=== PATIENT | female | born 1940 | race African-American/Black ===

== ENCOUNTER 2017-01-04 11:09 | Emergency (ER) | payer OTHER ==
[~2017-01-04 11:09] MED LIST: ALBU8I INH; CALC0.5C6 PO; CEPH-460 PO; FLUT5SPR INH; FOSA70TA PO; GABA300C5 PO; METO25TA3 PO; ZANA4CAP PO
[2017-01-04 11:11] VITALS: BP 128/72; PULSE 100; RESP 24; TEMP 99.2; O2SAT 98
[2017-01-04 11:44] VITALS: BP 111/60; PULSE 89; RESP 24; TEMP 99.6; O2SAT 98
[2017-01-04] MEDS ORDERED: ACETAMINOPHEN 325 MG TAB PO ONE (11:45)
--- NOTE | 2017-01-04 11:51 | PD ---
HPI Chief Complaint: Abnormal Results Time Seen by Provider: 11:31 Travel History International Travel<30 days: No Contact w/Intl Traveler<30days: No Traveled to known affect area: No History of Present Illness HPI 76 female with ESRD on HD (MWF), sent in by her primary care physician for evaluation of low blood pressure. Patient made an appointment with him today because she has been having headaches at night and night sweats for the past couple nights. She states that when she was in his office this morning her blood pressure was 70 systolic. In triage she is normotensive. She currently states that she feels well and is denying any physical complaints. No headache or neck stiffness. No chest pain or dyspnea. No abdominal pain, nausea, or vomiting. PFSH Past Medical History Arthritis: Yes Asthma: No Blood Disorders: No Anxiety: No Depression: No Heart Rhythm Problems: No Cancer: No Cardiovascular Problems: Yes High Cholesterol: No Chest Pain: No Congestive Heart Failure: Yes COPD: No Cerebrovascular Accident: No Diabetes: No Endocrine: No GERD: Yes Genitourinary: Yes (self straight cath, dialysis) Hepatitis: Yes (C) Hiatal Hernia: No Hypertension: Yes Immune Disorder: No Implanted Vascular Access Dvce: Yes Kidney Stones: Yes Musculoskeletal: Yes (ARTHRITIS) Neurologic: No Psychiatric: No Reproductive: No Respiratory: Yes Migraines: No Renal Failure: No Seizures: No Sleep Apnea: No Thyroid Disease: No Ulcer: No Tetanus Vaccination: > 5 Years Influenza Vaccination: Yes Menopausal: Yes : 6 Para: 6 Tubal Ligation: Yes Past Surgical History Abdominal Surgery: No AICD: No Body Medical Devices: RODS IN BACK, vascath right chest wall, fistula right arm Cardiac Surgery: No Ear Surgery: No Endocrine Surgery: No Eye Surgery: Yes (CATARACT REMOVE 2010) Genitourinary Surgery: Yes (KIDNEY STONE MORE THEN 20 YEARS) Gynecologic Surgery: Yes (HYSTERECTOMY) Hysterectomy: Yes (FULL) Joint Replacement: Yes (BOTH KNEES REPLACED) Neurologic Surgery: Yes (LAMI) Oral Surgery: Yes (REMOVE TEETH) Pacemaker: No Thoracic Surgery: Yes (LAMI LOWER [id number], 2013 X2) Other Surgery: Yes Social History Alcohol Use: No Tobacco Use: No Substance Use: No Allergies-Medications (Allergen,Severity, Reaction): Coded Allergies: Hydralazine (Verified Adverse Reaction, Severe, tachycardia, nausea, feeling of doom, 01/04/17) Reported Meds & Prescriptions Reported Meds & Active Scripts Active Metoprolol Tartrate 25 Mg Tab 12.5 Mg PO BID Keflex (Cephalexin) 500 Mg Cap 500 Mg PO Q8H Reported Zanaflex (Tizanidine HCl) 4 Mg Cap 4 Mg PO HS Gabapentin 300 Mg Cap 300 Mg PO DAILY Gnp Fluticasone Propionat (Fluticasone Propionate (Nasal)) 50 Mcg/Act Spr 50 Mcg INH DAILY Calcitriol 0.5 Mcg Cap 0.5 Mcg PO DAILY Fosamax (Alendronate Sodium) 70 Mg Tab 70 Mg PO Q7D Ventolin Hfa (Albuterol Sulfate) 8 Gm Aero 2 Puff INH Q4 * SHAKE WELL BEFORE USE * Review of Systems Except as stated in HPI: all other systems reviewed are Neg Physical Exam Narrative GENERAL: Pleasant, well-developed, well-nourished, comfortable, no acute distress. SKIN: Focused skin assessment warm/dry. No rash. HEAD: Atraumatic. Normocephalic. EYES: Pupils equal and round. No scleral icterus. No injection or drainage. ENT: Mucous membranes pink and moist. NECK: Trachea midline. No JVD. No nuchal rigidity. CARDIOVASCULAR: Regular rate and rhythm. No murmur appreciated. Right upper arm dialysis fistula with thrill and bruit. RESPIRATORY: No accessory muscle use. Clear to auscultation. Breath sounds equal bilaterally. GASTROINTESTINAL: Abdomen soft, non-tender, nondistended. Normal bowel sounds. MUSCULOSKELETAL: No obvious deformities. No clubbing. No cyanosis. No edema. NEUROLOGICAL: Awake and alert. No obvious cranial nerve deficits. Motor grossly within normal limits. Normal speech. PSYCHIATRIC: Appropriate mood and affect; insight and judgment normal. Data Data Last Documented VS Vital Signs Date Time Temp Pulse Resp B/P Pulse Ox O2 Delivery O2 Flow Rate FiO2 01/04/17 13:17 18 01/04/17 12:04 96 Room Air 01/04/17 11:44 99.6 89 111/60 Orders Complete Blood Count With Diff (01/04/17 11:43) Comprehensive Metabolic Panel (01/04/17 11:43) Lactic Acid Sepsis Protocol (01/04/17 11:43) Blood Culture (01/04/17 11:43) Ecg Monitoring (01/04/17 11:43) Iv Access Insert/Monitor (01/04/17 11:43) Oximetry (01/04/17 11:43) Acetaminophen (Tylenol) (01/04/17 11:45) Chest, Single Ap (01/04/17 ) Lactic Acid (01/04/17 13:14) Labs Laboratory Tests Test 01/04/17 01/04/17 11:58 13:25 White Blood Count 4.6 TH/MM3 Red Blood Count 3.97 MIL/MM3 Hemoglobin 12.1 GM/DL Hematocrit 37.0 % Mean Corpuscular Volume 93.1 FL Mean Corpuscular Hemoglobin 30.4 PG Mean Corpuscular Hemoglobin 32.7 % Concent Red Cell Distribution Width 13.9 % Platelet Count 114 TH/MM3 Mean Platelet Volume 7.8 FL Neutrophils (%) (Auto) 40.8 % Lymphocytes (%) (Auto) 47.2 % Monocytes (%) (Auto) 10.6 % Eosinophils (%) (Auto) 0.6 % Basophils (%) (Auto) 0.8 % Neutrophils # (Auto) 1.9 TH/MM3 Lymphocytes # (Auto) 2.2 TH/MM3 Monocytes # (Auto) 0.5 TH/MM3 Eosinophils # (Auto) 0.0 TH/MM3 Basophils # (Auto) 0.0 TH/MM3 CBC Comment DIFF FINAL Differential Comment Sodium Level 135 MEQ/L Potassium Level 4.6 MEQ/L Chloride Level 97 MEQ/L Carbon Dioxide Level 28.0 MEQ/L Anion Gap 10 MEQ/L Blood Urea Nitrogen 31 MG/DL Creatinine 6.41 MG/DL Estimat Glomerular Filtration 8 ML/MIN Rate Random Glucose 105 MG/DL Lactic Acid Level 2.4 mmol/L 1.6 mmol/L Calcium Level 8.6 MG/DL Total Bilirubin 0.4 MG/DL Aspartate Amino Transf 61 U/L (AST/SGOT) Alanine Aminotransferase 52 U/L (ALT/SGPT) Alkaline Phosphatase 108 U/L Total Protein 7.9 GM/DL Albumin 3.0 GM/DL [facility] Medical Decision Making Medical Screen Exam Complete: Yes Emergency Medical Condition: Yes Differential Diagnosis Sepsis, bacteremia, dehydration, metabolic abnormality Narrative Course Initial vital signs show heart rate 100, blood pressure 128/72, pulse ox 98% on room air, oral temp of 99.2F, rectal temp of 99.6F. CBC shows WBCs 4.6, hemoglobin 12.1, hematocrit 37, platelets 114 CMP is remarkable for BUN 31, creatinine 6.4, otherwise unremarkable. Lactic acid is 2.4. Repeat lactic is 1.6. Chest x-ray interpreted by me shows no infiltrate, no free air, no pneumothorax. Repeat blood pressure is 153/72. The patient states she feels well and would like to go home as she is very hungry. I discussed all findings with the patient's primary care physician Dr. Herron. Patient will be discharged home with outpatient follow-up in his office this week. She will report to dialysis as scheduled tomorrow. She was informed on when to return to the emergency department pitcher verbalizes understanding and agreement with plan. Diagnosis Primary Impression: Hypotensive episode Referrals: Primary Care Physician 3 days Additional Instructions: Follow-up with your primary care physician in the next 2-3 days. Go to dialysis tomorrow. Return to the emergency department for worsening symptoms or any other concerns. Disposition: 01 DISCHARGE HOME Condition: Stable Stefan Tavares MD Jan 04, 2017 11:51
[2017-01-04 12:04] VITALS: O2SAT 96
[2017-01-04 12:31] LABS: AUTOMATED NEUTROPHIL # 1.9 TH/MM3 (1.8-7.7); BASOPHIL % 0.8 % (0.0-2.0); EOSINOPHIL % 0.6 % (0.0-4.0); HEMO FLAGS DIFF FINAL; LYMPH % 47.2 % (9.0-44.0); LYMPHOCYTE # 2.2 TH/MM3 (1.0-4.8); MEAN CELL VOLUME 93.1 FL (80.0-100.0); MEAN CORPUSCULAR HEMOGLOBIN 30.4 PG (27.0-34.0); MEAN CORPUSCULAR HGB CONC 32.7 % (32.0-36.0); MONO % 10.6 % (0.0-8.0); NEUT % 40.8 % (16.0-70.0); PLATELET COUNT 114 TH/MM3 (150-450); RED BLOOD COUNT 3.97 MIL/MM3 (4.00-5.30); RED CELL DISTRIBUTION WIDTH 13.9 % (11.6-17.2); WHITE BLOOD COUNT 4.6 TH/MM3 (4.0-11.0)
[2017-01-04 12:49] LABS: ANION GAP 10 MEQ/L (5-15); AST (GOT) 61 U/L (15-37); BLOOD UREA NITROGEN 31 MG/DL (7-18); CHLORIDE 97 MEQ/L (98-107); GLOMERULAR FILTRATION RATE 8 ML/MIN (>89); POTASSIUM 4.6 MEQ/L (3.5-5.1); SODIUM (NA) 135 MEQ/L (136-145)
[2017-01-04 12:52] LABS: ALKALINE PHOSPHATASE 108 U/L (45-117); ALT (GPT) 52 U/L (10-53); TOTAL BILIRUBIN ADULT 0.4 MG/DL (0.2-1.0)
[2017-01-04 14:24] LABS: LACTIC ACID GHOST NOT REPORTABLE
[2017-01-04] MEDS ORDERED: ASPI81TA67 PO (15:37)
[2017-01-04] MEDS ORDERED: MULT1TAB PO (15:37)
[2017-01-04] MEDS ORDERED: VENTAER INH (15:37)
[2017-01-04] MEDS ORDERED: ALPR.25 PO (15:37)
[2017-01-04] MEDS ORDERED: FOSI40TA PO (15:39)
--- NOTE | 2017-01-04 15:55 | RADRPT ---
EXAM DATE/TIME: 01/04/2017 13:10 [place] COMPARISON: CHEST SINGLE AP, July 27, 2016, 21:53. INDICATIONS : Shortness of breath. MEDICAL HISTORY : None. SURGICAL HISTORY : None. ENCOUNTER: Initial ACUITY: 1 day PAIN SCORE: 0/10 LOCATION: Bilateral chest FINDINGS: A single view of the chest demonstrates the lungs to be symmetrically aerated without evidence of mas s, infiltrate or effusion. The cardiomediastinal contours are unremarkable. Osseous structures are intact. CONCLUSION: No acute disease. Benjamin Gannon MD on January 04, 2017 at 15:52 Board Certified Radiologist. This report was verified electronically.
[2017-01-04 16:12] VITALS: BP 134/76; PULSE 82; RESP 24; O2SAT 98
== END 2017-01-04 16:13 | disposition home or self-care (01) ==
LOC: NEPD 11:09
DX: I95.9 Hypotension, unspecified (principal); I12.0 Hypertensive chronic kidney disease with stage 5 chronic kidney disease or end stage renal disease; N18.6 End stage renal disease; Z99.2 Dependence on renal dialysis
CPT/HCPCS: 71010; 80053; 83605; 85025; 87040; 99283

== ENCOUNTER 2017-04-29 10:25 | Emergency (ER) | payer OTHER ==
[~2017-04-29 10:25] MED LIST changes: -ALBU8I INH; +ALPR.25 PO; +ASPI81TA67 PO; -CALC0.5C6 PO; -CEPH-460 PO; -FLUT5SPR INH; +FOSI40TA PO; -GABA300C5 PO; -METO25TA3 PO; +MULT1TAB PO; +VENTAER INH
--- NOTE | 2017-04-29 14:33 | PD ---
Physical Exam Date Seen by Provider: Apr 29, 2017 Time Seen by Provider: 14:29 Narrative I was asked by Dr. Mccauley to repair a laceration to the distal tip of patient 's left middle finger. Refer to his note for details of H&P MDM Medical Record Reviewed: Yes Supervised Visit with JOHN: No Differential Diagnosis finger laceration Narrative Course patient gave verbal consent for repair to the 1.5 cm laceration to the distal tip of her middle finger of the left hand, volar aspect. Patient tolerated without incident. Advised to have sutures (5) removed in 7 days. She tells me she will go to her PCP for removal. Patient verbalized understanding of instructions, questions were answered, and thanked me for their care. I advised them if their condition worsens, please return to the nearest emergency room for further care. Procedures Procedure Narrative LACERATION LOCATION: Left middle finger distal volar aspect LENGTH: 1.5 cm NUMBER OF STITCHES/MEDHAT: [-] REPAIR: The area of the laceration was prepped with Betadine and sterilely draped. The laceration was infiltrated with 1% lidocaine. The wound was copiously irrigated and explored without evidence of foreign body, tendon injury or neurovascular injury. The wound was closed using 4-0 Ethilon. This was a single layer repair. A sterile dressing was applied. The patient was advised to keep the dressing clean and dry. Patient tolerated the procedure well. Diagnosis Primary Impression: Finger laceration Qualified Codes: S61.213A - Laceration without foreign body of left middle finger without damage to nail, initial encounter Additional Instruction: You will need to have the sutures removed in 5-7 days. There were a total of 5 sutures placed. Disposition: 01 DISCHARGE HOME Condition: Stable Nicole Horner Apr 29, 2017 14:33
--- NOTE | 2017-04-29 14:45 | PD ---
HPI Chief Complaint: FINGER LACERATION Time Seen by Provider: 14:32 Travel History International Travel<30 days: No Contact w/Intl Traveler<30days: No Traveled to known affect area: No History of Present Illness HPI PATIENT SEEN AT [facility], WHERE SHE WAS TOLD SHE HAD TENDON INJURY AND NEEDED TO COME HERE. CARMITA IS ABLE TO MOVE DIGITS WELL, OVER LEFT MIDDLE FINGER, ACCIDENTALLY WHILE CUTTING MEAT IN KITCHEN... CAN'T RECALL LAST TETANUS PFSH Past Medical History Arthritis: Yes Asthma: No Blood Disorders: No Anxiety: No Depression: No Heart Rhythm Problems: No Cancer: No Cardiovascular Problems: Yes High Cholesterol: No Chest Pain: No Congestive Heart Failure: Yes COPD: No Cerebrovascular Accident: No Diabetes: No Endocrine: No GERD: Yes Genitourinary: Yes (self straight cath, dialysis) Hepatitis: Yes (C) Hiatal Hernia: No Hypertension: Yes Immune Disorder: No Implanted Vascular Access Dvce: Yes Kidney Stones: Yes Musculoskeletal: Yes (ARTHRITIS) Neurologic: No Psychiatric: No Reproductive: No Respiratory: Yes Migraines: No Renal Failure: No Seizures: No Sleep Apnea: No Thyroid Disease: No Ulcer: No Menopausal: Yes : 6 Para: 6 Tubal Ligation: Yes Past Surgical History Abdominal Surgery: No AICD: No Body Medical Devices: RODS IN BACK, vascath right chest wall, fistula right arm Cardiac Surgery: No Ear Surgery: No Endocrine Surgery: No Eye Surgery: Yes (CATARACT REMOVE 2010) Genitourinary Surgery: Yes (KIDNEY STONE MORE THEN 20 YEARS) Gynecologic Surgery: Yes (HYSTERECTOMY) Hysterectomy: Yes (FULL) Joint Replacement: Yes (BOTH KNEES REPLACED) Neurologic Surgery: Yes (LAMI) Oral Surgery: Yes (REMOVE TEETH) Pacemaker: No Thoracic Surgery: Yes (LAMI LOWER [id number], 2013 X2) Other Surgery: Yes Social History Alcohol Use: No Tobacco Use: No Substance Use: No Allergies-Medications (Allergen,Severity, Reaction): Coded Allergies: hydralazine (Unverified Adverse Reaction, Severe, tachycardia, nausea, feeling of doom, 04/24/17) Reported Meds & Prescriptions Reported Meds & Active Scripts Active Reported Fosinopril (Fosinopril Sodium) 40 Mg Tab 40 Mg PO DAILY Centrum Silver Adult 50+ (Multiple Vitamins W/ Minerals) 1 Tab Tab 1 Tab PO DAILY Aspirin DR (Aspirin) 81 Mg Tabdr 81 Mg PO DAILY Xanax (Alprazolam) 0.25 Mg Tab 0.25 Mg PO DAILY PRN Ventolin Hfa 18 GM Inh (Albuterol Sulfate) 90 Mcg/Act Aer 2 Puff INH Q4H PRN Zanaflex (Tizanidine HCl) 4 Mg Cap 4 Mg PO HS Fosamax (Alendronate Sodium) 70 Mg Tab 70 Mg PO Q7D ON TUESDAYS Review of Systems Except as stated in HPI: all other systems reviewed are Neg Skin: Positive Lesions, Positive Other (CUT TO LEFT MIDDLE FINGER, DISTAL PAD) Physical Exam Narrative GENERAL: SKIN: Warm and dry. HEAD: Atraumatic. Normocephalic. EYES: Pupils equal and round. No scleral icterus. No injection or drainage. ENT: No nasal bleeding or discharge. Mucous membranes pink and moist. NECK: Trachea midline. No JVD. CARDIOVASCULAR: Regular rate and rhythm. RESPIRATORY: No accessory muscle use. Clear to auscultation. Breath sounds equal bilaterally. GASTROINTESTINAL: Abdomen soft, non-tender, nondistended. Hepatic and splenic margins not palpable. MUSCULOSKELETAL: Extremities without clubbing, cyanosis, or edema. No obvious deformities. 3CM LAC OVER DISTAL PAD OF LEFT 3RD DIGIT, AREA WAS EXAMINED AND FOUND TO HAVE INTACT TENDON STRENGTH, NVI NEUROLOGICAL: Awake and alert. No obvious cranial nerve deficits. Motor grossly within normal limits. Five out of 5 muscle strength in the arms and legs. Normal speech. PSYCHIATRIC: Appropriate mood and affect; insight and judgment normal. MDM Medical Decision Making Medical Screen Exam Complete: Yes Emergency Medical Condition: Yes Medical Record Reviewed: Yes Differential Diagnosis FB V LACERATION SKIN V TENDON INVOLVEMENT Narrative Course PATIENT'S LACERATION WAS REPAIRED BY MANDY Fatima Diagnosis Primary Impression: Laceration of left middle finger Qualified Codes: S61.213A - Laceration without foreign body of left middle finger without damage to nail, initial encounter Disposition: DISCHARGE HOME Condition: Stable Bj Mccauley MD Apr 29, 2017 14:45
== END 2017-04-29 10:50 | disposition home or self-care (01) ==
LOC: NED 10:25
DX: S61.213A Laceration without foreign body of left middle finger without damage to nail, initial encounter (principal); X58.XXXA Exposure to other specified factors, initial encounter; M19.90 Unspecified osteoarthritis, unspecified site; K21.9 Gastro-esophageal reflux disease without esophagitis
CPT/HCPCS: 12001

== ENCOUNTER 2017-11-02 22:46 | Emergency (ER) | payer OTHER ==
[~2017-11-02] VITALS: Ht 172.7 cm; Wt 100.0 kg
[~2017-11-02 22:46] MED LIST changes: +ASPI81TA17 PO; -ASPI81TA67 PO
[2017-11-02 22:48] VITALS: BP 186/86; PULSE 92; RESP 16; TEMP 98.8; O2SAT 97
[2017-11-03 01:27] LABS: BACTERIA, URINE MOD /hpf; BILIRUBIN, URINE NEG (NEG); BLOOD, URINE TRACE (NEG); GLUCOSE,URINE NEG (NEG); KETONE, URINE NEG (NEG); NITRITE,URINE NEG (NEG); PH, URINE 8.5 (5.0-8.5); URINE COLOR YELLOW (YELLW/STRAW); URINE LEUKOCYTE ESTERASE LARGE (NEG)
[2017-11-03] MEDS ORDERED: LEVOFLOXACIN 750 MG TAB PO ONE (02:00)
[2017-11-03] MEDS ORDERED: CEPH-460 PO (03:07)
--- NOTE | 2017-11-03 03:07 | PD ---
HPI Chief Complaint: Complaint Time Seen by Provider: 23:20 Travel History International Travel<30 days: No Contact w/Intl Traveler<30days: No Traveled to known affect area: No History of Present Illness HPI DELILAH is a 77-year-old female with end-stage renal disease dialyzed scheduled Sunday she was dialyzed Son today she is been 3 days on Bactrim for UTI that she's been having. Patient straight catheter himself once a day . Inspite of ESRD she makes some ure. She's coming in because she still having dysuria burning with urination and she is been 3 days on Bactrim BID We ask her to she straight catheter herself for us to analysis its sent to lab ..Results ininnumerable white cells and needs another antibiotic added I give her Levaquin by mouth for one dose which will take time to clear and can be redosed after dialysis.. 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 [facility] Past Medical History Arthritis: Yes Asthma: No Blood Disorders: No Anxiety: No Depression: No Heart Rhythm Problems: No Cancer: No Cardiovascular Problems: Yes High Cholesterol: No Chest Pain: No Congestive Heart Failure: Yes COPD: No Cerebrovascular Accident: No Diabetes: No Diminished Hearing: No Endocrine: No GERD: Yes Genitourinary: Yes (self straight cath, dialysis) Hepatitis: Yes (C) Hiatal Hernia: No Hypertension: Yes Immune Disorder: No Implanted Vascular Access Dvce: Yes Kidney Stones: Yes Musculoskeletal: Yes (ARTHRITIS) Neurologic: No Psychiatric: No Reproductive: No Respiratory: Yes Migraines: No Renal Failure: No Seizures: No Sleep Apnea: No Thyroid Disease: No Ulcer: No Tetanus Vaccination: Unknown Influenza Vaccination: Yes Menopausal: Yes : 6 Para: 6 Tubal Ligation: Yes Past Surgical History Abdominal Surgery: No AICD: No Body Medical Devices: RODS IN BACK, vascath right chest wall, fistula right arm Cardiac Surgery: No Ear Surgery: No Endocrine Surgery: No Eye Surgery: Yes (CATARACT REMOVE 2010) Genitourinary Surgery: Yes (KIDNEY STONE MORE THEN 20 YEARS) Gynecologic Surgery: Yes (HYSTERECTOMY) Hysterectomy: Yes (FULL) Joint Replacement: Yes (BOTH KNEES REPLACED) Neurologic Surgery: Yes (LAMI) Oral Surgery: Yes (REMOVE TEETH) Pacemaker: No Thoracic Surgery: Yes (LAMI LOWER [id number],2009, 2013 X2) Other Surgery: Yes Social History Alcohol Use: No Tobacco Use: No Substance Use: No Allergies-Medications (Allergen,Severity, Reaction): Coded Allergies: hydralazine (Unverified Adverse Reaction, Severe, tachycardia, nausea, feeling of doom, 11/02/17) Reported Meds & Prescriptions Reported Meds & Active Scripts Active Keflex (Cephalexin) 500 Mg Cap 500 Mg PO Q8H Reported Fosinopril (Fosinopril Sodium) 40 Mg Tab 40 Mg PO DAILY Centrum Silver Adult 50+ (Multiple Vitamins W/ Minerals) 1 Tab Tab 1 Tab PO DAILY Aspirin DR (Aspirin) 81 Mg Tabdr 81 Mg PO DAILY Xanax (Alprazolam) 0.25 Mg Tab 0.25 Mg PO DAILY PRN Ventolin Hfa 18 GM Inh (Albuterol Sulfate) 90 Mcg/Act Aer 2 Puff INH Q4H PRN Zanaflex (Tizanidine HCl) 4 Mg Cap 4 Mg PO HS Fosamax (Alendronate Sodium) 70 Mg Tab 70 Mg PO Q7D ON TUESDAYS Review of Systems Except as stated in HPI: all other systems reviewed are Neg Physical Exam Narrative GENERAL: non toxic appearance, non septic SKIN: Warm and dry. HEAD: Atraumatic. Normocephalic. EYES: Pupils equal and round. No scleral icterus. No injection or drainage. ENT: No nasal bleeding or discharge. Mucous membranes pink and moist. NECK: Trachea midline. No JVD. CARDIOVASCULAR: Regular rate and rhythm. RESPIRATORY: No accessory muscle use. Clear to auscultation. Breath sounds equal bilaterally. GASTROINTESTINAL: Abdomen soft, non-tender, nondistended. Hepatic and splenic margins not palpable. MUSCULOSKELETAL: Extremities without clubbing, cyanosis, or edema. No obvious deformities. NEUROLOGICAL: Awake and alert. No obvious cranial nerve deficits. Motor grossly within normal limits. Five out of 5 muscle strength in the arms and legs. Normal speech. PSYCHIATRIC: Appropriate mood and affect; insight and judgment normal. Data Data Last Documented VS Vital Signs Date Time Temp Pulse Resp B/P (MAP) Pulse Ox O2 Delivery O2 Flow Rate FiO2 11/03/17 03:19 11/02/17 22:48 98.8 92 16 97 Room Air Orders Orders Urinalysis - C+S If Indicated (11/03/17 00:15) Urine Culture (11/03/17 00:20) Levofloxacin (Levaquin) (11/03/17 02:00) Ed Discharge Order (11/03/17 03:05) Labs Laboratory Tests Test 11/03/17 00:20 Urine Color YELLOW Urine Turbidity HAZY Urine pH 8.5 Urine Specific [place] 1.012 Urine Protein 300 mg/dL Urine Glucose (UA) NEG mg/dL Urine Ketones NEG mg/dL Urine Occult Blood TRACE Urine Nitrite NEG Urine Bilirubin NEG Urine Urobilinogen LESS THAN 2.0 MG/DL Urine Leukocyte Esterase LARGE Urine RBC 51 /hpf Urine WBC /hpf Urine Bacteria MOD /hpf Microscopic Urinalysis Comment CATH-CULTURE IND MDM Medical Decision Making Medical Screen Exam Complete: Yes Emergency Medical Condition: Yes Differential Diagnosis uti with resistant vs sepsis vs ESRD compliction other Narrative Course UA Results innumerable white cells . Sheneeds broader coverage needs another antibiotic added I give her Levaquin by mouth for one dose which will take time to clear and can be redosed after dialysis.. 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 Diagnosis Primary Impression: UTI (urinary tract infection) Patient Instructions: General Instructions, Urinary Tract Infection in Women ( ED) Additional Instructions: call your MD to let him know you are now on 2 antibiotics Keflex and Bactrim and follow up with another urine test next week. urine Cultures are pending in [place] lab Scripts Cephalexin (Keflex) 500 Mg Cap 500 MG PO Q8H for Infection, #21 CAP 0 Refills Prov: Ortega Barker MD 11/03/17 Ortega Barker MD Nov 03, 2017 03:07
== END 2017-11-03 03:20 | disposition home or self-care (01) ==
LOC: NEPE 22:46
DX: N39.0 Urinary tract infection, site not specified (principal); B96.20 Unspecified Escherichia coli [E. coli] as the cause of diseases classified elsewhere; I13.2 Hypertensive heart and chronic kidney disease with heart failure and with stage 5 chronic kidney disease, or end stage renal disease; N18.6 End stage renal disease; I50.9 Heart failure, unspecified; M19.90 Unspecified osteoarthritis, unspecified site; K21.9 Gastro-esophageal reflux disease without esophagitis; Z86.19 Personal history of other infectious and parasitic diseases; Z79.82 Long term (current) use of aspirin
CPT/HCPCS: 81001; 87077; 87086; 87186; 99283

== ENCOUNTER 2018-03-11 20:19 | Inpatient (IN) ==
[2018-03-15 10:14] VITALS: RESP 16; O2SAT 98
[2018-03-15 16:31] VITALS: BP 161/79; PULSE 66; TEMP 98.3
== END 2018-03-15 17:30 | disposition home or self-care (01) ==
LOC: NEPC 20:19 → NEDA 03-12 02:44 → N05 03-12 07:40 → HCPC 03-12 12:15
PROVIDERS: ADMIT Hospitalist; ATTEND Hospitalist